=== PATIENT | male | born 1985 | race Hispanic/Latino ===

== ENCOUNTER 2021-01-22 11:18 | Emergency (ER) | payer BC ==
[2021-01-22 12:15] LABS: Absolute Lymphocytes (CBC) 1.1 K/uL (0.7-4.9); Basophils % 0.5 % (0-1.3); Hematocrit 43.9 % (39.6-49.0); Lymphocytes % 24.8 % (15.3-44.8); MPV 8.1 fL (7.6-11.3); RBC Red Blood Cell Count 4.89 M/uL (4.33-5.43)
[2021-01-22 12:25] LABS: Protime INR 0.97
[2021-01-22 12:54] LABS: ALT/SGPT 42 U/L (12-78); AST/SGOT 26 U/L (15-37); Albumin 4.3 g/dL (3.4-5.0); Alkaline Phosphatase 71 U/L (45-117); BUN Blood Urea Nitrogen 11 mg/dL (7-18); Bicarbonate 28 mmol/L (21-32); Bilirubin Direct 0.1 mg/dL (0-0.2); Bilirubin Total 0.5 mg/dL (0.2-1.0); Glucose Level 110 mg/dL (74-106); Magnesium 2.1 mg/dL (1.8-2.4); NT PRO-BNP 5 pg/mL (<125); Protein, Total 7.8 g/dL (6.4-8.2); Sodium Level 140 mmol/L (136-145); Troponin (Emerg Dept Use Only) < 0.02 ng/mL (0.0-0.045)
--- NOTE | 2021-01-22 12:57 | RAD REPORT ---
EXAM DESCRIPTION: RAD - Chest Single View - 01/22/2021 12:42 pm CLINICAL HISTORY: PALPITATIONS COMPARISON: December 2007 TECHNIQUE: AP portable chest image was obtained 01/22/2021 12:42 pm . FINDINGS: Lungs are clear. Heart and vasculature are normal. No measurable pleural effusion and no p neumothorax. No acute bony abnormality seen. No acute aortic findings suspected. IMPRESSION: No acute cardiopulmonary process. No worrisome change from comparison.
--- NOTE | 2021-01-22 13:16 | EDPHYS ---
Physician Documentation [facility] Name: Guille Lam Age: 35 yrs Sex: Male : 1985 Arrival Date: 01/22/2021 Time: 11:27 Bed 15 Private MD: ED Physician Will Tinajero HPI: 01/22 12:10 This 35 yrs old Male presents to ER via EMS with complaints of Palpitations. pm1 12:10 The patient presents with a history of heart racing. Context: The symptoms occur at pm1 rest. Onset: The symptoms/episode began/occurred yesterday. Duration: The patient or guardian reports multiple episodes, that have now resolved. Modifying factors: The symptoms are aggravated by nothing. The symptoms are alleviated by Ativan given by EMS in route to ER. Associated signs and symptoms: Pertinent positives: dizziness with palpations, Pertinent negatives: cough, nausea, SOB, vomiting. Severity of symptoms: in the emergency department the symptoms have resolved Pain is currently a 0 / 10. The patient has not experienced similar symptoms in the past. The patient has not recently seen a physician. Patient with heavy night of drinking and 2 hours of sleep on Friday night. Went to work on Friday and started to feel palpitations when he got home from work. Upon feeling this way he took an extra dose of Norvasc and started to feel dizzy. Historical: - Allergies: 11:28 No Known Drug Allergies; hb - PMHx: 11:28 Hypertension; hb - PSHx: 11:28 None; hb - Immunization history:: Flu vaccine is not up to date. - Social history:: Smoking status: Patient denies any tobacco usage or history of. ROS: 12:10 Constitutional: Negative for fever, chills, and weight loss, Respiratory: Negative for pm1 shortness of breath, cough, wheezing, and pleuritic chest pain. 12:10 Abdomen/GI: Negative for abdominal pain, nausea, vomiting, diarrhea, and constipation, Back: Negative for injury and pain, MS/Extremity: Negative for injury and deformity, Skin: Negative for injury, rash, and discoloration. 12:10 Cardiovascular: Positive for palpitations, Negative for chest pain, edema, orthopnea. 12:10 Neuro: Positive for dizziness, Negative for numbness, tingling, weakness. Exam: 12:10 Constitutional: This is a well developed, well nourished patient who is awake, alert, pm1 and in no acute distress. Head/Face: Normocephalic, atraumatic. 12:10 Back: No spinal tenderness. No costovertebral tenderness. Full range of motion. Skin: Warm, dry with normal turgor. Normal color with no rashes, no lesions, and no evidence of cellulitis. MS/ Extremity: Pulses equal, no cyanosis. Neurovascular intact. Full, normal range of motion. 12:10 Cardiovascular: Exam negative for acute changes, Rate: normal, Rhythm: regular, Pulses: no pulse deficits are appreciated, Edema: is not appreciated. 12:10 Respiratory: Exam negative for acute changes, respiratory distress, shortness of breath. 12:10 Abdomen/GI: Exam negative for acute changes, Inspection: abdomen appears normal, Palpation: abdomen is soft and non-tender. 12:10 Neuro: Exam negative for acute changes, Orientation: is normal, Mentation: is normal, Motor: is normal, moves all fours, Sensation: is normal, no obvious gross deficits. Vital Signs: 11:31 Weight 92.99 kg; Height 5 ft. 8 in. (172.72 cm); Pain 0/10; ll1 12:10 BP 136 / 106; Pulse 64; Resp 17; Temp 98.0; Pulse Ox 98% on R/A; hb 13:05 BP 141 / 62; Pulse 62; Resp 16; Pulse Ox 97% on R/A; hb 11:31 Body Mass Index 31.17 (92.99 kg, 172.72 cm) ll1 MDM: 11:31 Patient medically screened. pm1 13:14 Data reviewed: vital signs. Data interpreted: Pulse oximetry: on room air is 97 %. pm1 Interpretation: normal. Counseling: I had a detailed discussion with the patient and/or guardian regarding: the historical points, exam findings, and any diagnostic results supporting the discharge/admit diagnosis, lab results, radiology results, the need for outpatient follow up, a clothing designer, a family practitioner, to return to the emergency department if symptoms worsen or persist or if there are any questions or concerns that arise at home. 01/22 11:58 Order name: Basic Metabolic Panel; Complete Time: 13:13 pm1 01/22 11:58 Order name: CBC with Diff; Complete Time: 13:13 pm1 01/22 11:58 Order name: LFT's; Complete Time: 13:13 pm1 01/22 11:58 Order name: Magnesium; Complete Time: 13:13 pm1 01/22 11:58 Order name: NT PRO-BNP; Complete Time: 13:13 pm1 01/22 11:58 Order name: PT-INR; Complete Time: 13:13 pm1 01/22 11:58 Order name: Troponin (emerg Dept Use Only); Complete Time: 13:13 pm1 01/22 11:58 Order name: XRAY Chest (1 view); Complete Time: 13:13 pm1 01/22 11:58 Order name: EKG; Complete Time: 12:00 pm1 01/22 11:58 Order name: Cardiac monitoring; Complete Time: 12:10 pm1 01/22 11:58 Order name: EKG - Nurse/Tech; Complete Time: 12:10 pm1 01/22 11:58 Order name: IV Saline Lock; Complete Time: 12:10 pm01/22 11:58 Order name: TSH; Complete Time: 13:13 pm1 01/22 11:58 Order name: Labs collected and sent; Complete Time: 12:10 pm1 01/22 11:58 Order name: O2 Per Protocol; Complete Time: 12:10 pm01/22 11:58 Order name: O2 Sat Monitoring; Complete Time: 12:10 pm1 Administered Medications: 12:10 Drug: NS 0.9% 1000 ml Route: IV; Rate: 1000 ml; Site: left antecubital; hb Disposition: 19:58 Co-signature as Attending Physician, Will Tinajero MD I agree with the assessment and [place] [facility] plan of care. Disposition: 01/22/21 13:15 Discharged to Home. Impression: Palpitations. - Condition is Stable. - Discharge Instructions: Palpitations. - Work release form, Medication Reconciliation Form, Thank You Letter, Antibiotic Education, Prescription Opioid Use form. - Follow up: Emergency Department; When: As needed; Reason: Worsening of condition. Follow up: Private Physician; When: 2 - 3 days; Reason: Recheck today's complaints, Continuance of care, Re-evaluation by your physician. - Problem is new. - Symptoms have improved. Signatures: Dispatcher [employer] Will Carbajal MD MD cha Marinas Esau, POT SANDER POT SANDER pm1 Evita Mcnamara, RN RN Jazmine Storm RN RN ll1 Corrections: (The following items were deleted from the chart) 11:34 11:28 Social history: Smoking status: Patient reports the use of cigarette tobacco ll1 products, denies chronic smoking, but will smoke occasionally, hb 13:53 13:15 01/22/2021 13:15 Discharged to Home. Impression: Palpitations. Condition is hb Stable. Forms are Medication Reconciliation Form, Thank You Letter, Antibiotic Education, Prescription Opioid Use. Follow up: Emergency Department; When: As needed; Reason: Worsening of condition. Follow up: Private Physician; When: 2 - 3 days; Reason: Recheck today's complaints, Continuance of care, Re-evaluation by your physician. Problem is new. Symptoms have improved. pm1
--- NOTE | 2021-01-22 13:16 | ER ---
Nurse's Notes [facility] Name: Guille Lam Age: 35 yrs Sex: Male : 1985 Arrival Date: 01/22/2021 Time: 11:27 Bed 15 Private MD: Diagnosis: Palpitations Presentation: 01/22 11:31 Chief complaint: Patient states: Palpitations, shakiness since last night. Dizzy, near ll1 syncope today while at work. Feel better after 2mg ativan and 100mg thiamine. EMS states: Found tachycardic/SVT. 20 G L AC. Coronavirus screen: Client denies travel out of the [place] in the last 14 days. At this time, the client does not indicate any symptoms associated with coronavirus-19. Ebola Screen: Patient denies travel to an Ebola-affected area in the 21 days before illness onset. Initial Sepsis Screen: Does the patient meet any 2 criteria? No. Patient's initial sepsis screen is negative. Initial Sepsis Screen: Does the patient have a suspected source of infection? No. Patient's initial sepsis screen is negative. Risk Assessment: Do you want to hurt yourself or someone else? Patient reports no desire to harm self or others. Onset of symptoms was January 21, 2021. 11:31 Method Of Arrival: EMS: [facility] 1 11:31 Acuity: PROSPER 3 ll1 Historical: - Allergies: 11:28 No Known Drug Allergies; hb - PMHx: 11:28 Hypertension; hb - PSHx: 11:28 None; hb - Immunization history:: Flu vaccine is not up to date. - Social history:: Smoking status: Patient denies any tobacco usage or history of. Screenin:54 Abuse screen: Denies threats or abuse. Denies injuries from another. Nutritional hb screening: No deficits noted. Tuberculosis screening: No symptoms or risk factors identified. Fall Risk None identified. Assessment: 12:00 General: Appears in no apparent distress. Behavior is calm, cooperative. Pain: Denies hb pain. Neuro: Level of Consciousness is awake, alert, obeys commands, Oriented to person, place, time, situation. Cardiovascular: Capillary refill < 3 seconds Patient's skin is warm and dry. Rhythm is regular. Respiratory: Respiratory effort is even, unlabored, Respiratory pattern is regular, symmetrical. GI: No signs and/or symptoms were reported involving the gastrointestinal system. : No signs and/or symptoms were reported regarding the genitourinary system. EENT: No signs and/or symptoms were reported regarding the EENT system. Derm: Skin is pink, warm \T\ dry. Musculoskeletal: No signs and/or symptoms reported regarding the musculoskeletal system. 13:00 Reassessment: Patient appears in no apparent distress at this time. No changes from hb previously documented assessment. Patient and/or family updated on plan of care and expected duration. Pain level reassessed. Patient is alert, oriented x 3, equal unlabored respirations, skin warm/dry/pink. Vital Signs: 11:31 Weight 92.99 kg; Height 5 ft. 8 in. (172.72 cm); Pain 0/10; ll1 12:10 BP 136 / 106; Pulse 64; Resp 17; Temp 98.0; Pulse Ox 98% on R/A; hb 13:05 BP 141 / 62; Pulse 62; Resp 16; Pulse Ox 97% on R/A; hb 11:31 Body Mass Index 31.17 (92.99 kg, 172.72 cm) ll1 ED Course: 11:27 Patient arrived in ED. hb 11:27 Arm band placed on Patient placed in an exam room, on a stretcher. hb 11:31 sEau Fleming NP is PHCP. pm1 11:31 Will Tinajero MD is Attending Physician. pm1 11:33 Triage completed. ll1 11:53 Evita Mcnamara, ROSE is Primary Nurse. hb 11:54 Patient has correct armband on for positive identification. Bed in low position. Call hb light in reach. 12:07 Initial lab(s) drawn, by dc, sent to lab. Maintain EMS IV. Dressing intact. Good blood jp3 return noted. Site clean \T\ dry. Gauge \T\ site: 20-gauge LAC. 12:07 EKG done, by ED staff, reviewed by Esau Fleming NP. Patient maintains SpO2 jp3 saturation greater than 95% on room air. 12:10 Placed in gown. Side rails up X 1. Verbal reassurance given. animal biologist on. Pulse jp3 ox on. NIBP on. 12:43 XRAY Chest (1 view) In Process Unspecified. EDMS Administered Medications: 12:10 Drug: NS 0.9% 1000 ml Route: IV; Rate: 1000 ml; Site: left antecubital; hb Outcome: 13:15 Discharge ordered by pm1 13:53 Patient left the ED. hb Signatures: Dispatcher [employer] EDEsau Ojeda NP IDENTITY ACCESS MANAGEMENT ARCHITECT pm1 Evita Mcnamara RN RN Santiago Amezcua jp3 Jazmine Storm RN RN ll1 Corrections: (The following items were deleted from the chart) 11:34 11:28 Social history: Smoking status: Patient reports the use of cigarette tobacco ll1 products, denies chronic smoking, but will smoke occasionally, hb
[2021-01-22 14:00] VITALS: TEMP 98
[2021-01-22 14:02] VITALS: BP 141/62; O2SAT 97
--- NOTE | 2021-01-24 05:06 | EKG ---
Test Date: 2021-01-22 Test Time: 12:17:26 Synthetic Gem Press Operator: BEN MEASUREMENT RESULTS: Intervals: Rate: 64 RI: 158 QRSD: 92 QT: 416 QTc: 429 [place]: P: 67 RI: 158 QRS: 88 T: -15 INTERPRETIVE STATEMENTS: Normal sinus rhythm T wave abnormality, consider inferior ischemia Abnormal ECG Compared to ECG 05/02/2009 08:36:51 T-wave abnormality now present Possible ischemia now present Sinus bradycardia no longer present Electronically Signed On 01-24-21 05:03:55 VAN DRIVER by Luis Carlos Younger
== END 2021-01-22 13:53 | disposition home or self-care (01) ==
LOC: ER 11:18
DX: R00.2 Palpitations (principal); I10 Essential (primary) hypertension
CPT/HCPCS: 36415; 71045; 80048; 80076; 83735; 83880; 84443; 84484; 85025; 85610; 93005; 99285